=== PATIENT | male | born 1960 | race Asian ===

== ENCOUNTER 2016-09-09 07:38 | Day surgery (SDC) | payer OTHER ==
[~2016-09-09 07:38] MED LIST: FENTANYL 250 MCG/5 ML AMP IV PRN; IV START KIT ONE; LACTATED RINGERS 1,000 ML IV SCH; LIDOCAINE Viscous 2% 15 ML UDCUP PO PRN; MIDAZOLAM HCL 5 MG/5 ML VIAL IV PRN
[2016-09-09] MEDS ORDERED: PROPOFOL 20 ML IV ONE (08:47)
[2016-09-09 12:48] LABS: HELICOBACTER PYLORII DETECTION NEGATIVE (NEGATIVE)
--- NOTE | 2016-09-11 08:54 | SURGPATH ---
[facility] [address] [place] [id number] Patient Name: TAI GOLDSTEIN MR#: [id number] : 1960 Gender: M Specimen #: [id number] Collected: 09/09/2016 Received: 09/10/2016 Reported: 09/11/2016 Submitting Phys: WALLY RAMIREZ Copy To Phys: [facility] Clinical History / Pre-Operative Diagnosis: EPIGASTRIC PAIN; GERD; NAUSEA; VOMITING; RULE OUT GIARDIA, CELIAC SPRUE AND GASTRITIS Specimen Source / Surgical Procedure Performed: #1-DUODENAL BIOPSY; #2-STOMACH ANTRUM BIOPSY Interpretation: 1. DUODENUM, BIOPSY: - NO PATHOLOGIC ABNORMALITIES 2. STOMACH ANTRUM, BIOPSY: - NO PATHOLOGIC ABNORMALITIES Electronically Signed Out Dimitri Tse M.D. Gross Description: #1 The specimen is received in a formalin filled container labeled with the patient's name and "duodenal biopsy". Three moore biopsies are 0.2, 0.2 and 0.4 cm. Totally embedded in cassette #1. #2 The specimen is received in a formalin filled container labeled with the patient's name and "stomach antrum biopsy". [place] biopsies are each 0.4 cm. Totally embedded in cassette #2. Ezequiel Hatch Microscopic Description: 1. The sections show fragments of small bowel mucosa exhibiting a normal architectural pattern without evidence of villous blunting. There are no inflammatory or neoplastic features and there are no microorganisms identified. 2. The sections show fragments of gastric mucosa exhibiting a normal architectural pattern. There are no inflammatory or neoplastic features and there are no Helicobacter-like organisms identified. 1: [id number] 2: 41826 R10.13
== END 2016-09-09 09:45 | disposition home or self-care (01) ==
LOC: SDC 07:38
PROVIDERS: ATTEND Internal Medicine Gastroenterology
PROC: 0DB98ZX Excision of Duodenum, Via Natural or Artificial Opening Endoscopic, Diagnostic (ICD-10-PCS; principal; 2016-09-09)
PROC: 0DB68ZX Excision of Stomach, Via Natural or Artificial Opening Endoscopic, Diagnostic (ICD-10-PCS; 2016-09-09)
DX: K29.70 Gastritis, unspecified, without bleeding (principal); K29.80 Duodenitis without bleeding; K62.5 Hemorrhage of anus and rectum; N45.1 Epididymitis